=== PATIENT | female | born 1945 | race Caucasian/White ===

== ENCOUNTER 2016-08-06 21:36 | Inpatient (IN) | payer MEDICARE, OTHER ==
--- NOTE | ~2016-08-06 | DS ---
Discharge Summary [facility] [address] [place]. [address] NAME: CAREY KEMP : 45 STATUS : DIS IN PAT#: [id number] AGE: 71 ADM/REG DATE : 08/07/16 MR#: [id number] REPORT SERV DATE: 08/11/16 DICTATED BY: JOSE VALLE DATE: 08/10/16 REPORT STATUS : Draft TRANSCRIBED BY: MODL DATE: 08/10/16 ADMISSION DATE: 08/07/2016 DISCHARGE DATE: 08/10/2016 Please refer to yesterday's full discharge summary. The only reason this patient was kept one additional day was because of Medicare's regulation that three midnights in the hospital are required before coverage for rehab services. The patient slept well. She is calm. She is still oriented to person, place, and time. Her memory does seem to be a little bit slow at times. She is calm. She has no dysuria. No chest pain. Her O2 saturations are normal. She denies any dysuria except slight at this time. She does request something very mild to be given to her in case she has difficulty sleeping, and so we are going to add melatonin 3 mg p.o. at bedtime p.r.n. insomnia. Otherwise, the discharge list of medications dictated yesterday completes the full list. 22 minutes were spent today with the patient and with case management, and discharge planning. JACKG/ZAFAR Jose Valle M.D. / [id number] CC: Zev Mcgovern M.D. Zev Lairos III, M.D. Ry Scott M.D. [facility]
--- NOTE | ~2016-08-06 | DS ---
Discharge Summary [facility] [address] [place]. [address] NAME: CAREY KEMP : 45 STATUS : ADM IN [facility]#: [id number] AGE: 71 ADM/REG DATE : 08/07/16 MR#: [id number] REPORT SERV DATE: 08/10/16 DICTATED BY: JOSE VALLE DATE: 08/09/16 REPORT STATUS : Draft TRANSCRIBED BY: MODL DATE: 08/09/16 ADMISSION DATE: 08/07/2016 DISCHARGE DATE: 08/09/2016 DISCHARGE DIAGNOSES: 1. Acute metabolic encephalopathy due to medication side effect versus Escherichia coli urinary tract infection. 2. Escherichia coli urinary tract infection. 3. Oxygen-dependent chronic obstructive pulmonary disease. 4. Paroxysmal atrial fibrillation. 5. History of old strokes. 6. Chronic mild thrombocytopenia. 7. History of multiple falls. 8. 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 HISTORY: This patient was brought to the emergency room at [facility] with a complaint by her family that she was weak and confused over the last prior days. There reportedly had been an increase in the strength of her pain medicine from 5 mg hydrocodone to 7.5 mg hydrocodone. The patient was reportedly more drowsy with falls. The patient has been in the hospital here on 02/04/2013 with falls and fractured left humerus, 11/06/2013 with falls, 04/09/2014 with falls and altered mental status. Currently in the emergency room, she was noted to be hypoxic on room air. She was referred to the Hospitalist Service for inpatient care. HOSPITAL COURSE: CT scan of the brain without contrast in the emergency room revealed mild- to-moderate atrophy that was stable. There was old left MCA hemisphere infarct that was stable. No acute abnormalities were noted. Chest x-ray with some chronic interstitial changes and calcification of the aorta. She had some complaints of sacral and coccygeal pain. X-rays of these revealed no evidence of fractures. She had some complaint of pain in her right knee. X-ray revealed some mild arthritis and medial joint narrowing. No fractures or abnormalities, otherwise. Her urinalysis was abnormal with positive nitrite, moderate leukocyte esterase, 24 white blood cells, and many bacteria. She grew out greater than 100,000 E. coli. She was treated initially here with intravenous Rocephin. The patient's white blood count has been normal throughout. Her platelet count is mildly low, but this is chronic. Currently, it is ranging between 128 to 140,000. The patient's sodium has been normal. Her creatinine was slightly elevated on 08/08/2016 at 1.1, but it is back to 0.88 on 08/09/2016. TSH is 0.379. Her liver enzymes were only remarkable for albumin of 3.1. Cardiac troponins normal. TSH normal at 0.379. The patient was assessed by Physical Therapy and felt to need inpatient rehab. The patient prefers [facility] [place]. On 08/09/2016, she is calm and alert. She is oriented to her full name. She knows she is Discharge Summary [address] [address] NAME: CAREY KEMP : 45 STATUS : ADM IN [facility]#: [id number] AGE: 71 ADM/REG DATE : 08/07/16 MR#: [id number] REPORT SERV DATE: 08/10/16 DICTATED BY: JOSE VALLE DATE: 08/09/16 REPORT STATUS : Draft TRANSCRIBED BY: ZAFAR DATE: 08/09/16 in a hospital in [place]. When I asked her what year, she initially said 1917, then she corrected herself to 2016. She knows the president's name. She appears stable for discharge to rehab at this time. She is on warfarin chronically for paroxysmal atrial fibrillation and her INR at discharge is 3.1. Here in the hospital, we reduced her hydrocodone from 7.5 down to 5 mg tablets as we had concern that might have been part of what led to her being more somnolent and falls. DISCHARGE MEDICATIONS: Norvasc 10 mg daily, hold if systolic less than 105; vitamin B12 5000 mcg p.o. daily; gabapentin 300 mg q.i.d.; Zestril 20 mg daily, hold if systolic less than 105; omeprazole 40 mg daily; Zoloft 100 mg daily; Zocor 40 mg at bedtime; sotalol 80 mg twice a day; Coumadin 5 mg every evening except she takes 7.5 mg on Saturday evening; hydralazine 50 mg twice a day, hold if systolic less than 105; albuterol nebulized p.r.n. shortness of breath; Tylenol 650 q.6 hours p.r.n. mild pain; [place] 5/325 p.r.n. moderate-to- severe pain; and Macrobid 100 mg p.o. b.i.d. for five more days. I spent 53 minutes with the patient and discharge planning today. MCKENNA/ZAFAR Jose Valle M.D. / [id number] CC: Zev Mcgovern M.D. John Everett Blake III, M.D. Gregg Shander, M.D. Henry Paik, M.D. [facility]
--- NOTE | ~2016-08-06 | HP ---
History And Physical [facility] [address] [facility] [place]. [address] NAME: CAREY KEMP : 45 STATUS : ADM Anisha PAT#: [id number] AGE: 71 ADM/REG DATE : 08/06/16 MR#: [id number] REPORT SERV DATE: 08/07/16 DICTATED BY: DENNYS FLOR DATE: 08/07/16 REPORT STATUS : Draft TRANSCRIBED BY: MODBlake DATE: 08/07/16 DATE OF ADMISSION: 08/06/2016 CHIEF COMPLAINT: Altered mental status and fall. HISTORY OF PRESENT ILLNESS: This is a 71-year-old female with a history of atrial fibrillation, history of prior CVA, on anticoagulation, COPD, and hypertension who presents to the emergency room at [facility], with the above-mentioned complaint. History is obtained from the patient and reviewing data available on the [employer] system. According to available data, she had been more confused over the last few days after her finish painter increased the doses of her medications. Her son had told the ER physician that this change had made his mother more somnolent and confused. Today, she was more so than before and he finally decided to bring her to the emergency room to be evaluated. Mother has also sustained some falls at home and has chronic pain for which she goes to see the pain specialist. In the emergency room, she presented with hypoxemia, volume overload, and urinary tract infection. Hospitalist Service is asked to admit her for further evaluation and treatment. PHYSICAL EXAMINATION: GENERAL: At the time of my evaluation, she appeared to be more with it, but she also has some expressive aphasia. She is alert, awake, and oriented to time, place, and person. HEENT: Pupils are equal, reacting to light and accommodating. External ocular muscles are intact. Membranes are moist and pink. Sclerae are nonicteric. NECK: Supple with no jugular venous distention, lymphadenopathy, or thyromegaly. LUNGS: Clear to auscultation with no wheezes, rubs, or crackles. HEART: Sounds were regular with no murmurs, rubs, or gallops. ABDOMEN: Soft, nontender. Bowel sounds are present. EXTREMITIES: Showed no cyanosis, clubbing, or edema. NEUROLOGIC: Grossly intact. She was able to move all 4 extremities. There were no obvious new deficits. VITAL SIGNS: Today, showed a temperature of 100.0 upon arrival, pulse was 76, respirations 20 a minute, and blood pressure upon arrival was 146/79, oxygen saturations were 92% on 2 to 3 L via nasal cannula. On room air, she presented with hypoxia. LABORATORY DATA: Reviewed on the [employer] system showed a pH of 7.34 on an arterial blood gas, pCO2 was 56, PO2 was 48, and bicarb was 29.2. This was on room air. CMP showed normal values. Blood glucose was 109. Her albumin was 3.3, globulin 4.2. AST and ALT were within normal limits. Troponin was slightly elevated at 0.09 today. Her BNP was 402.5. CBC showed normal white blood cell count, hemoglobin, hematocrit levels. Platelet count was 140,000. Her prothrombin time was 29.1 with an INR of 2.8 today. Influenza A and B were negative. Urinalysis showed moderate leukocyte esterase, nitrite was positive. There were 24 wbc's and many bacteria. Films of the CT scan of the brain and chest x-ray were reviewed by me on the PACS today and interpreted by me. CT of the brain did not reveal any acute intracranial processes. Chest x-ray films read by me showed a chronic right humerus History And Physical [address] [address] NAME: CAREY KEMP : 45 STATUS : ADM Anisha PAT#: [id number] AGE: 71 ADM/REG DATE : 08/06/16 MR#: [id number] REPORT SERV DATE: 08/07/16 DICTATED BY: DENNYS FLOR DATE: 08/07/16 REPORT STATUS : Draft TRANSCRIBED BY: MODBlake DATE: 08/07/16 fracture with increased congestion. A 12-lead EKG done in the emergency room was reviewed and interpreted by me. There is normal sinus rhythm with a rate of [address]- T changes. IMPRESSION: 1. Encephalopathy. 2. Urinary tract infection. 3. Hypoxemia. 4. Volume overload. 5. History of atrial fibrillation. 6. Diabetes mellitus type 2. 7. Chronic obstructive pulmonary disease. 8. Essential hypertension. 9. History of left parietal cerebrovascular accident. 10.Obstructive sleep apnea. PLAN: We will admit Mrs. Kemp to the Hospitalist Service with telemetry for a 24-hour observation period. After cultures are obtained, we will start her on empiric IV antibiotics, follow Gram stains and cultures. We will get an EKG now to see what her rhythm is. Meanwhile, we will maximize her bronchodilator treatments and continue supplemental oxygen therapy. We will also give her a dose of diuretics intravenously at this time. Blood sugar control will be established with NovoLog given subcutaneously per sliding scale as well. Her encephalopathy may be multifactorial, probably secondary to urinary tract infection and also hypoxemia. We will hold off on ordering an MRI and further workup until we evaluate her in the morning and then order as needed. I have discussed the above plans with the patient. Her questions were answered and she is agreeable to the above recommendations. Hospitalist Service will be following her during her stay here. KISHAN Dennys Flor M.D. / [id number]
[2016-08-06 20:23] LABS: ASCORBIC ACID (UR NOT ORDER) NEG (NEG); BILIRUBIN, URINE NEGATIVE (NEG); ER URINALYSIS TAT 0 Hrs 18 Mins; KETONE, URINE NEGATIVE (NEG); LEUKOCYTE ESTERASE(NOT OR MOD (NEG); NITRITE (URINE) POS (NEG); WBC (NOT ORDERED) (RFLEX) 24 (0-5)
[~2016-08-06 21:36] MED LIST: ACCUNE1 INH; ADVAIR115P INH; ALBUTEROL TX; APRES25 PO; APRES50 PO; ASAB PO; ATIVAN 0.5 MG; ATV.5 PO; BACDS PO; BETAPACE80 PO; C2 PO; C25 PO; C5 PO; CALTRA600D PO; CORDARONE PO; COUMADIN3 MG PO; FERROUS SULF325 M1 PO; GLUCOPHXR PO; GLUCPH PO; HALF81 PO; HYDRALAZINE PO; IRON325 MG PO; L20 PO; LANTUS SC; LEVEMIR SC; LISINOPRIL40 MG PO; LONG ACTING INSULIN SC; LOP100 PO; LOP25 PO; LORT7 PO; LORTAB10 PO; MAGOX4 PO; MAX D3; MAXIMUM D3 PO; METHIMAZOLE10 MG OR; METHOC500B PO; NITROQUICK0.4 MG SL; NITROSTAT0.4 MG SL; NORCO1 TA1 PO; NORCO1 TAB PO; NORV5 PO; NTG150 SL; OS500+D PO; P10 PO; PACERONE200 MG PO; PR12.5 PO; PR25 PO; PRILO PO; PRILOSEC OTC20 MG PO; PRILOSEC40 MG PO; PROAIR HFA INH; PROTONIX PO; SEPTRA DS1 TAB PO; SPIRIVA INH; SYMBICORT 160/41 INH INH; THERA M PLUS PO; VENTOLIN HFA INH; VICODINTAB PO; ZANTAC 150 PO; ZANTAC 75 PO; ZESTRIL10 MG PO; ZESTRIL40 MG PO; ZESTRIL5 MG PO; ZOCOR40 PO; ZOL100 PO; ZOL50 PO
[2016-08-06 21:46] LABS: BASOPHILS 0.3 %; BASOPHILS ABSOLUTE 0.02 10/3/uL (0.0-0.16); EOSINOPHILS 1.7 %; EOSINOPHILS ABSOLUTE 0.13 10/3/uL (0.0-0.53); ER CBC TAT 0 Hrs 03 Mins; HEMOGLOBIN 15.1 g/dL (12.0-16.0); IMMATURE GRANULOCYTES 0.1 %; IMMATURE GRANULOCYTES ABSOLUTE 0.01 10/3/uL (0.0-0.11); LYMPHOCYTES 19.8 %; LYMPHOCYTES ABSOLUTE 1.51 10/3/uL (0.67-4.30); MONOCYTES 7.9 %; NEUTROPHILS 70.2 %; NEUTROPHILS ABSOLUTE 5.37 10/3/uL (2.02-8.40); RBC DISTRIBUTION WIDTH 13.1 % (12.0-16.0); WHITE BLOOD CELLS 7.6 10/3/uL (4.5-10.5)
[2016-08-06 21:47] LABS: HEMATOCRIT 47.2 % (36.0-48.0); MANUAL DIFF NO %; MEAN CORPUSCULAR HEMOGLOB 30.2 pg (26.0-34.0); MEAN CORPUSCULAR VOLUME 94.4 fL (80-100); PLATELET COUNT 140 10/3/uL (150-400)
[2016-08-06 21:53] LABS: INTERNATIONAL NORMAL RATI 2.8 UNITS (-); PARTIAL THROMBO TIME 37.3 SEC (22.5-37.2)
[2016-08-06 21:54] LABS: PROTIME (NOT ORD) 29.1 SEC (12.0-14.5)
[2016-08-06 22:04] LABS: INFLUENZA A SCREEN NEGATIVE (NEGATIVE); INFLUENZA B SCREEN NEGATIVE (NEGATIVE)
[2016-08-06 22:06] LABS: A/G RATIO 0.8 (0.7-1.9); ALBUMIN 3.3 G/DL (3.5-5.0); BUN (BLOOD UREA NITROGEN) 20 MG/DL (6-23); CALCIUM, SERUM 8.6 MG/DL (8.5-10.4); CHLORIDE, SERUM 102 MMOL/L (96-112); CO2 (CARBON DIOXIDE) 31 MMOL/L (24-34); GFR AFRICAN AMERICAN 66 ML/MIN (>=60); GFR NON AFRICAN AMERICAN 57 ML/MIN (>=60); GLOBULIN 4.2 G/DL (2.5-4.1); POTASSIUM, SERUM 4.2 MMOL/L (3.5-5.3); SGOT(AST) 17 U/L (5-40); SGPT(ALT) 15 U/L (5-65); SODIUM, SERUM 141 MMOL/L (135-148); TOTAL BILIRUBIN 0.5 MG/DL (0-1.2); TOTAL PROTEIN 7.5 G/DL (6.0-8.5)
[2016-08-06 22:07] LABS: ALKALINE PHOSPHATASE 86 U/L (45-117); GLUCOSE, SERUM 109 MG/DL (60-99); TROPONIN I 0.09 NG/ML (<0.05)
[2016-08-06 22:52] LABS: BE (BASE EXCESS) 2.1 MEQ/L (0 +/- 2.5); CARBOXYHEMOGLOBIN 3.2 % (0-3); HCO3 (ACTUAL BICARBONATE) 29.2 MEQ/L (23-27); HEMOBLOGIN CONTENT 14.9 G/DL (12-16); INSTRUMENT SERIAL # 8087; METHEMOGLOBIN 0.4 % (0-3); O2 CONTENT 17.4 VOL% (18-24); PCO2 (CO2 TENSION) 56 MMHG (35-45); PO2 (O2 TENSION) 48 MMHG (79-93); SAMPLE Arterial; pH 7.34 (7.37-7.43)
[2016-08-06 22:58] LABS: ACETAMINOPHEN LEVEL (TYLENOL) < 2.0 MCG/ML (10.0-20.0); ALCOHOL < 10 MG/DL (0)
[2016-08-06] MEDS ORDERED: NORCO1 TAB PO (23:03)
[2016-08-06] MEDS ORDERED: SORINE80 MG PO (23:03)
[2016-08-06] MEDS ORDERED: PROVHFA INH (23:03)
[2016-08-06] MEDS ORDERED: PRILOSEC40 MG PO (23:04)
[2016-08-06] MEDS ORDERED: NORV10 PO (23:04)
[2016-08-06] MEDS ORDERED: NEUR300 PO (23:07)
[2016-08-06] MEDS ORDERED: APRES50 PO (23:07)
[2016-08-06] MEDS ORDERED: CYANO1000T PO (23:07)
[2016-08-06] MEDS ORDERED: ZOL100 PO (23:07)
[2016-08-06] MEDS ORDERED: SPIRIVA INH (23:08)
[2016-08-06] MEDS ORDERED: C5 PO (23:08)
[2016-08-06] MEDS ORDERED: ZOCOR40 PO (23:08)
[2016-08-06] MEDS ORDERED: *UNABLE1 (23:09)
[2016-08-06 23:11] LABS: AMPHETAMINES (NOT ORD) NEG (NEG); BARBITURATES (NOT ORDERED NEG (NEG); BENZODIAZEPINES (NOT ORD) NEG (NEG); CANNABINOIDS (THC) NEG (NEG); COCAINE (NOT ORDERED) NEG (NEG); OPIATES POS (NEG); PHENCYCLIDINE(PCP) NEG (NEG); TRICYCLICS NEG (NEG)
[2016-08-07 00:41] LABS: PROCALCITONIN <0.05 ng/mL (<0.5)
[2016-08-07 05:39] LABS: BASOPHILS 0.3 %; BASOPHILS ABSOLUTE 0.02 10/3/uL (0.0-0.16); EOSINOPHILS 2.6 %; EOSINOPHILS ABSOLUTE 0.18 10/3/uL (0.0-0.53); HEMATOCRIT 44.9 % (36.0-48.0); HEMOGLOBIN 14.3 g/dL (12.0-16.0); IMMATURE GRANULOCYTES 0.3 %; IMMATURE GRANULOCYTES ABSOLUTE 0.02 10/3/uL (0.0-0.11); LYMPHOCYTES 25.1 %; LYMPHOCYTES ABSOLUTE 1.74 10/3/uL (0.67-4.30); MEAN CORPUS HGB CONC 31.8 g/dL (32.0-36.0); MEAN CORPUSCULAR HEMOGLOB 30.1 pg (26.0-34.0); MEAN CORPUSCULAR VOLUME 94.5 fL (80-100); MEAN PLATELET VOLUME 11.2 fL (9.2-13.0); MONOCYTES 10.5 %; MONOCYTES ABSOLUTE 0.73 10/3/uL (0.21-1.20); NEUTROPHILS 61.2 %; NEUTROPHILS ABSOLUTE 4.23 10/3/uL (2.02-8.40); PLATELET COUNT 138 10/3/uL (150-400); RBC DISTRIBUTION WIDTH 12.8 % (12.0-16.0); RED CELL COUNT 4.75 10/6/uL (4.0-5.6); WHITE BLOOD CELLS 6.9 10/3/uL (4.5-10.5)
[2016-08-07 05:40] LABS: MANUAL DIFF NO %
[2016-08-07 06:02] LABS: BUN (BLOOD UREA NITROGEN) 21 MG/DL (6-23); CALCIUM, SERUM 8.4 MG/DL (8.5-10.4); CHLORIDE, SERUM 103 MMOL/L (96-112); CO2 (CARBON DIOXIDE) 29 MMOL/L (24-34); CREATININE 0.86 MG/DL (0.55-1.02); GFR AFRICAN AMERICAN 79 ML/MIN (>=60); GFR NON AFRICAN AMERICAN 68 ML/MIN (>=60); GLUCOSE, SERUM 99 MG/DL (60-99); POTASSIUM, SERUM 3.9 MMOL/L (3.5-5.3); SODIUM, SERUM 141 MMOL/L (135-148)
[2016-08-07 06:06] LABS: ULTRASENSITIVE TSH 0.379 MCIU/ML (0.358-3.740)
[2016-08-07 07:17] LABS: PROCALCITONIN <0.05 ng/mL (<0.5)
[2016-08-07] MEDS ORDERED: ALBUTEROL0.63 MG/3 INH (09:15)
[2016-08-07] MEDS ORDERED: NORCO1 TA2 PO (09:18)
[2016-08-07] MEDS ORDERED: ZESTRIL20 MG PO (09:20)
[2016-08-07] MEDS ORDERED: NYSTATPOW TOP (09:21)
[2016-08-07] MEDS ORDERED: COUMADIN7.5 MG PO (09:24)
[2016-08-08 01:30] LABS: BASOPHILS 0.3 %; BASOPHILS ABSOLUTE 0.02 10/3/uL (0.0-0.16); EOSINOPHILS 5.1 %; EOSINOPHILS ABSOLUTE 0.34 10/3/uL (0.0-0.53); HEMATOCRIT 44.1 % (36.0-48.0); HEMOGLOBIN 14.6 g/dL (12.0-16.0); IMMATURE GRANULOCYTES 0.1 %; IMMATURE GRANULOCYTES ABSOLUTE 0.01 10/3/uL (0.0-0.11); LYMPHOCYTES 19.5 %; LYMPHOCYTES ABSOLUTE 1.31 10/3/uL (0.67-4.30); MANUAL DIFF NO %; MEAN CORPUS HGB CONC 33.1 g/dL (32.0-36.0); MEAN CORPUSCULAR HEMOGLOB 31.2 pg (26.0-34.0); MEAN CORPUSCULAR VOLUME 94.2 fL (80-100); MEAN PLATELET VOLUME 11.3 fL (9.2-13.0); MONOCYTES ABSOLUTE 0.81 10/3/uL (0.21-1.20); NEUTROPHILS ABSOLUTE 4.24 10/3/uL (2.02-8.40); PLATELET COUNT 128 10/3/uL (150-400); RBC DISTRIBUTION WIDTH 12.7 % (12.0-16.0); RED CELL COUNT 4.68 10/6/uL (4.0-5.6); WHITE BLOOD CELLS 6.7 10/3/uL (4.5-10.5)
[2016-08-08 01:44] LABS: A/G RATIO 0.7 (0.7-1.9); ALBUMIN 3.1 G/DL (3.5-5.0); ALKALINE PHOSPHATASE 84 U/L (45-117); CALCIUM, SERUM 8.6 MG/DL (8.5-10.4); CHLORIDE, SERUM 100 MMOL/L (96-112); CO2 (CARBON DIOXIDE) 31 MMOL/L (24-34); CREATININE 1.14 MG/DL (0.55-1.02); GFR AFRICAN AMERICAN 56 ML/MIN (>=60); GFR NON AFRICAN AMERICAN 48 ML/MIN (>=60); GLOBULIN 4.2 G/DL (2.5-4.1); GLUCOSE, SERUM 116 MG/DL (60-99); PHOSPHORUS, SERUM 3.4 MG/DL (2.5-4.5); POTASSIUM, SERUM 4.1 MMOL/L (3.5-5.3); SGOT(AST) 16 U/L (5-40); SGPT(ALT) 19 U/L (5-65); SODIUM, SERUM 139 MMOL/L (135-148); TOTAL BILIRUBIN 0.4 MG/DL (0-1.2); TOTAL PROTEIN 7.3 G/DL (6.0-8.5)
[2016-08-08 01:50] LABS: BUN (BLOOD UREA NITROGEN) 30 MG/DL (6-23)
[2016-08-08 05:03] LABS: INTERNATIONAL NORMAL RATI 3.1 UNITS (-); PROTIME (NOT ORD) 31.3 SEC (12.0-14.5)
[2016-08-08 16:35] LABS: CK-MB 0.6 NG/ML; CPK 88 U/L (0-200); TROPONIN I <0.02 NG/ML (<0.05)
[2016-08-09 05:48] LABS: BASOPHILS 0.3 %; BASOPHILS ABSOLUTE 0.02 10/3/uL (0.0-0.16); EOSINOPHILS 6.3 %; EOSINOPHILS ABSOLUTE 0.37 10/3/uL (0.0-0.53); HEMATOCRIT 41.3 % (36.0-48.0); HEMOGLOBIN 13.4 g/dL (12.0-16.0); IMMATURE GRANULOCYTES 0.2 %; IMMATURE GRANULOCYTES ABSOLUTE 0.01 10/3/uL (0.0-0.11); LYMPHOCYTES 27.7 %; LYMPHOCYTES ABSOLUTE 1.62 10/3/uL (0.67-4.30); MEAN CORPUS HGB CONC 32.4 g/dL (32.0-36.0); MEAN CORPUSCULAR HEMOGLOB 29.4 pg (26.0-34.0); MONOCYTES 12.8 %; MONOCYTES ABSOLUTE 0.75 10/3/uL (0.21-1.20); NEUTROPHILS 52.7 %; NEUTROPHILS ABSOLUTE 3.08 10/3/uL (2.02-8.40); PLATELET COUNT 131 10/3/uL (150-400); RBC DISTRIBUTION WIDTH 12.8 % (12.0-16.0); RED CELL COUNT 4.56 10/6/uL (4.0-5.6); WHITE BLOOD CELLS 5.9 10/3/uL (4.5-10.5)
[2016-08-09 06:11] LABS: MEAN CORPUSCULAR VOLUME 90.6 fL (80-100)
[2016-08-09 06:12] LABS: BUN (BLOOD UREA NITROGEN) 28 MG/DL (6-23); CALCIUM, SERUM 8.2 MG/DL (8.5-10.4); CHLORIDE, SERUM 104 MMOL/L (96-112); CO2 (CARBON DIOXIDE) 29 MMOL/L (24-34); CREATININE 0.88 MG/DL (0.55-1.02); GFR AFRICAN AMERICAN 77 ML/MIN (>=60); GFR NON AFRICAN AMERICAN 66 ML/MIN (>=60); GLUCOSE, SERUM 115 MG/DL (60-99); MANUAL DIFF NO %; PHOSPHORUS, SERUM 2.7 MG/DL (2.5-4.5); POTASSIUM, SERUM 4.1 MMOL/L (3.5-5.3); SODIUM, SERUM 140 MMOL/L (135-148)
[2016-08-09 18:26] LABS: PROTIME (NOT ORD) 22.2 SEC (12.0-14.5)
[2016-08-10 04:56] LABS: INTERNATIONAL NORMAL RATI 1.8 UNITS (-)
== END 2016-08-10 16:55 | DRG 689 ==
LOC: ER 21:36 → CDU1 23:21 → CDU2 08-07 00:28 → CDU1 08-07 00:54
PROVIDERS: Emergency Medicine; Hospitalist; Internal Medicine
DX: N39.0 Urinary tract infection, site not specified (principal); G92 Toxic encephalopathy; D69.6 Thrombocytopenia, unspecified; I48.0 Paroxysmal atrial fibrillation; E87.70 Fluid overload, unspecified; F03.90 Unspecified dementia, unspecified severity, without behavioral disturbance, psychotic disturbance, mood disturbance, and anxiety; Z99.81 Dependence on supplemental oxygen; T50.905A Adverse effect of unspecified drugs, medicaments and biological substances, initial encounter; B96.20 Unspecified Escherichia coli [E. coli] as the cause of diseases classified elsewhere; E11.9 Type 2 diabetes mellitus without complications; R09.02 Hypoxemia; M17.11 Unilateral primary osteoarthritis, right knee; J44.9 Chronic obstructive pulmonary disease, unspecified; G47.33 Obstructive sleep apnea (adult) (pediatric); G89.4 Chronic pain syndrome; W19.XXXA Unspecified fall, initial encounter; R27.0 Ataxia, unspecified; M19.90 Unspecified osteoarthritis, unspecified site; M81.0 Age-related osteoporosis without current pathological fracture; Z79.01 Long term (current) use of anticoagulants; Z90.710 Acquired absence of both cervix and uterus; Z86.73 Personal history of transient ischemic attack (TIA), and cerebral infarction without residual deficits; Z87.891 Personal history of nicotine dependence; Z91.81 History of falling; Z79.891 Long term (current) use of opiate analgesic
CPT/HCPCS: 36600; 70450; 71010; 72220; 73560-RT; 80048; 80053; 80069; 80305; 80307; 81001; 82550; 82553; 82805; 82962; 83605; 83735; 83880; 84100; 84145; 84443; 84484; 85025; 85610; 85730; 87040; 87077; 87086; 87186; 87804; 93005; 94640; 96374; 97162-GP; 99285; A9270-GY; G8978-CK-GP; G8979-CJ-GP